=== PATIENT | male | born 1955 | race Two or more races ===

== ENCOUNTER 2021-02-13 19:08 | Inpatient (IN) | payer OTHER ==
[~2021-02-13] VITALS: Ht 167.6 cm; Wt 103.0 kg
[2021-02-13 19:53] LABS: Basophils # (auto) 0 10 ^3/uL (0-0.2); Basophils % (auto) 0.5 % (0.0-2.0); Eosinophils # (auto) 0.1 10 ^3/uL (0-0.8); Eosinophils % (auto) 1.6 % (0.0-7.0); Hematocrit 42.3 % (41.0-53.0); Hemoglobin 14.2 g/dL (13.5-17.5); Lymphocytes # (auto) 2.4 10 ^3/uL (0.4-5.4); Lymphocytes % (auto) 28.6 % (10.0-50.0); Mean Corpuscular Hemoglobin 30.8 pg (28.0-32.0); Mean Corpuscular Hgb Conc. 33.7 g/dL (32.0-36.0); Mean Corpuscular Volume 91.4 fL (80.0-100.0); Monocytes # (auto) 0.7 10 ^3/uL (0-1.3); Monocytes % (auto) 7.9 % (0.0-12.0); Neutrophils # (auto) 5.1 10 ^3/uL (1.6-8.6); Neutrophils % (auto) 61.4 % (37.0-80.0); Red Blood Cells 4.62 10^6/uL (4.5-5.90); Red Cell Distribution Width 13.6 % (11.8-14.3); White Blood Cell 8.3 10^3/uL (4.4-10.8)
[2021-02-13 20:15] LABS: Albumin 3.5 g/dL (3.4-5.0); Anion Gap 6 (5-15); Blood Urea Nitrogen 25 mg/dL (7-18); Calcium 8.6 mg/dL (8.5-10.1); Carbon Dioxide 26 mmol/L (21-32); Chloride 105 mmol/L (98-107); Glucose 202 mg/dL (74-106); Magnesium 2.2 mg/dL (1.6-2.6); Potassium 3.8 mmol/L (3.5-5.1); Sodium 137 mmol/L (136-145)
[2021-02-13 20:24] LABS: Alanine Aminotransferase 76 U/L (16-61); Alkaline Phosphatase 108 U/L (45-117); Aspartate Aminotransferase 140 U/L (15-37); Bilirubin, Total 0.6 mg/dL (0.2-1.0); GFR African American 98 mL/min; GFR Non-African American 81 mL/min; Total Protein 7.3 g/dL (6.4-8.2)
[2021-02-13 20:44] LABS: BUN/Creatinine Ratio 25.5
[2021-02-14] MEDS ORDERED: MORPHINE SULFATE INJECTION 2 MG/ML SYRG IV PRN (00:30)
[2021-02-14] MEDS ORDERED: ACETAMINOPHEN 325 MG TAB PO PRN (00:30)
[2021-02-14] MEDS ORDERED: NITROGLYCERIN 0.4 MG SL TAB SL PRN (00:30)
[2021-02-14] MEDS ORDERED: TEMAZEPAM 15 MG CAP PO PRN (00:30)
[2021-02-14] MEDS ORDERED: DEXTROSE (50%) 50ML SYRG IV PRN (00:30)
[2021-02-14] MEDS ORDERED: ONDANSETRON HCL 4 MG/2 ML VIAL IV PRN (00:30)
[2021-02-14] MEDS: InsuLIN REG 1unit/0.01ml Soln (100units/ml) SC SCH ×2 (06:23→13:30)
[2021-02-14] MEDS: ACCU-CHEK COMFORT CURVE STRIP VI SCH ×2 (06:23→12:51)
[2021-02-14] MEDS ORDERED: HYDR25TA5 PO (09:43)
[2021-02-14] MEDS ORDERED: METO25TA93 PO (09:43)
[2021-02-14] MEDS ORDERED: ROSU1TAB15 PO (09:43)
[2021-02-14] MEDS ORDERED: METF-371 PO (09:43)
[2021-02-14] MEDS ORDERED: LISI20TA28 PO (09:43)
[2021-02-14] MEDS ORDERED: SEMA2INJ SC (09:43)
[2021-02-14] MEDS ORDERED: PIOG1TAB36 PO (09:43)
[2021-02-14] MEDS ORDERED: AMLO-489 PO (09:43)
[2021-02-14] MEDS ORDERED: GLIP10TA9 PO (09:43)
[2021-02-14] MEDS ORDERED: ENOXAPARIN SOD 40 MG/0.4 ML SYRINGE SC SCH (10:00)
[2021-02-14] MEDS ORDERED: ASPirin 81 mg TAB PO SCH (10:00)
[2021-02-14] MEDS ORDERED: LISINOPRIL 20 MG TAB PO SCH (10:00)
[2021-02-14] MEDS ORDERED: METOPROLOL SUCCINATE XL 50 MG TAB PO SCH (10:00)
[2021-02-14] MEDS ORDERED: PANTOPRAZOLE 40 MG TAB PO SCH (10:00)
[2021-02-14] MEDS ORDERED: amLODIPine BESYLATE 5 MG TAB PO SCH (10:00)
[2021-02-14 13:00] VITALS: BP 129/79
[2021-02-14 16:43] VITALS: BP 120/68
[2021-02-14 17:29] VITALS: BP 129/79
[2021-02-14] MEDS ORDERED: ATORVASTATIN 20 MG TAB PO SCH (22:00)
== END 2021-02-14 18:10 | disposition home or self-care (01) | DRG 313 ==
LOC: EDBD 19:08 → ER 19:12 → TELE 02-14 00:26 → TELE-WESTW 02-14 11:50
PROVIDERS: ADMIT Nurse Practitioner; ATTEND Internal Medicine Geriatric Medicine
DX: R07.89 Other chest pain (principal); I25.110 Atherosclerotic heart disease of native coronary artery with unstable angina pectoris; E66.9 Obesity, unspecified; E11.9 Type 2 diabetes mellitus without complications; E78.5 Hyperlipidemia, unspecified; I10 Essential (primary) hypertension; Z20.822 Contact with and (suspected) exposure to COVID-19; Z95.1 Presence of aortocoronary bypass graft; Z68.36 Body mass index [BMI] 36.0-36.9, adult
CPT/HCPCS: 36415; 71045; 80053; 82962; 83735; 83880; 84484; 85025; 87426; 93005; 93306; 96372; 99291; G0378; J1815